=== PATIENT | female | born 1965 | race Native Hawaiian/Other Pacific Islander ===

== ENCOUNTER 2018-10-02 07:29 | Day surgery (SDC) | payer OTHER ==
[~2018-10-02] VITALS: Ht 160 cm; Wt 85.7 kg
== END 2018-10-02 09:10 | disposition home or self-care (01) ==
LOC: OR 07:29
PROC: 3E0U33Z Introduction of Anti-inflammatory into Joints, Percutaneous Approach (ICD-10-PCS; principal; 2018-10-02)
PROC: 3E0U3BZ Introduction of Anesthetic Agent into Joints, Percutaneous Approach (ICD-10-PCS; 2018-10-02)
DX: M53.3 Sacrococcygeal disorders, not elsewhere classified (principal); M46.1 Sacroiliitis, not elsewhere classified
CPT/HCPCS: J1020; J3490

== ENCOUNTER 2018-12-17 08:51 | Day surgery (SDC) | payer OTHER | END 2018-12-17 11:45 | disposition home or self-care (01) | LOC: OR 08:51 | PROC: 3E0T3BZ Introduction of Anesthetic Agent into Peripheral Nerves and Plexi, Percutaneous Approach (ICD-10-PCS; principal; 2018-12-17) | PROC: 3E0T33Z Introduction of Anti-inflammatory into Peripheral Nerves and Plexi, Percutaneous Approach (ICD-10-PCS; 2018-12-17) | PROC: BR16YZZ Fluoroscopy of Lumbar Facet Joint(s) using Other Contrast (ICD-10-PCS; 2018-12-17) | DX: M47.817 Spondylosis without myelopathy or radiculopathy, lumbosacral region (principal) | CPT/HCPCS: J1100; J2001 ==

== ENCOUNTER 2019-02-25 10:39 | Day surgery (SDC) | payer OTHER ==
[~2019-02-25] VITALS: Ht 160 cm; Wt 90.7 kg
== END 2019-02-25 13:15 | disposition home or self-care (01) ==
LOC: OR 10:39
PROC: 3E0T3TZ Introduction of Destructive Agent into Peripheral Nerves and Plexi, Percutaneous Approach (ICD-10-PCS; principal; 2019-02-25)
PROC: BR16YZZ Fluoroscopy of Lumbar Facet Joint(s) using Other Contrast (ICD-10-PCS; 2019-02-25)
DX: M47.816 Spondylosis without myelopathy or radiculopathy, lumbar region (principal)
CPT/HCPCS: J2001

== ENCOUNTER 2019-04-22 07:50 | Day surgery (SDC) | payer OTHER | END 2019-04-22 09:19 | disposition home or self-care (01) | LOC: OR 07:50 | PROC: 3E0T3TZ Introduction of Destructive Agent into Peripheral Nerves and Plexi, Percutaneous Approach (ICD-10-PCS; principal; 2019-04-22) | PROC: BR16YZZ Fluoroscopy of Lumbar Facet Joint(s) using Other Contrast (ICD-10-PCS; 2019-04-22) | DX: M47.817 Spondylosis without myelopathy or radiculopathy, lumbosacral region (principal) | CPT/HCPCS: J2001 ==

== ENCOUNTER 2019-09-25 07:35 | Day surgery (SDC) | payer OTHER ==
[~2019-09-25] VITALS: Ht 30.5 cm; Wt 0.5 kg
== END 2019-09-25 08:55 | disposition home or self-care (01) ==
LOC: OR 07:35
PROC: 3E0R33Z Introduction of Anti-inflammatory into Spinal Canal, Percutaneous Approach (ICD-10-PCS; principal; 2019-09-25)
PROC: 3E0R3BZ Introduction of Anesthetic Agent into Spinal Canal, Percutaneous Approach (ICD-10-PCS; 2019-09-25)
DX: M53.3 Sacrococcygeal disorders, not elsewhere classified (principal); M46.1 Sacroiliitis, not elsewhere classified
CPT/HCPCS: J1020; J3490